=== PATIENT | male | born 1985 | race Caucasian/White ===

== ENCOUNTER 2019-03-16 12:26 | Emergency (ER) | payer SELFPAY ==
[2019-03-16] MEDS ORDERED: ONDANSETRON 4 MG (ODT) TAB ONE (13:09)
[2019-03-16 13:39] LABS: Absolute Lymphocytes (CBC) 1.1 K/uL (0.7-4.9); Absolute Monocytes 1.4 K/uL (0.1-1.3); Absolute Neutrophil 25.2 K/uL (1.8-8.0); Basophils % 0.2 % (0-1.3); Hematocrit 55.5 % (39.6-49.0); Lymphocytes % 3.8 % (15.3-44.8); MPV 8.8 fL (7.6-11.3); RBC Red Blood Cell Count 5.97 M/uL (4.33-5.43)
[2019-03-16] MEDS ORDERED: DICYCLOMINE HCL 10 MG CAP ONE (13:46)
[2019-03-16] MEDS ORDERED: ONDANSETRON 4 MG/2 ML VIAL ONE (13:46)
[2019-03-16] MEDS ORDERED: NA CHLORIDE 0.9% 1,000 ML ONE ×2 (13:46→14:35)
[2019-03-16 13:55] LABS: Albumin 5.6 g/dL (3.4-5.0); Bilirubin Direct 0.2 mg/dL (0-0.2); Bilirubin Total 0.9 mg/dL (0.2-1.0); Potassium 3.9 mmol/L (3.5-5.1); Protein, Total 10.3 g/dL (6.4-8.2)
--- NOTE | 2019-03-16 14:28 | RAD REPORT ---
EXAM DESCRIPTION: CT - Abdomen Pelvis W Contrast - 03/16/2019 2:15 pm CLINICAL HISTORY: Abdominal pain, nausea vomiting and diarrhea, prior hernia repair, prior lithotrip sy COMPARISON: None. TECHNIQUE: Biphasic, helical CT imaging of the abdomen and pelvis was performed following 100 ml non -ionic IV contrast. No oral contrast administered. All CT scans are performed using dose optimization technique as appropriate and may include automated exposure control or mA/KV adjustment according to patient size. FINDINGS: No suspicious findings in the lung bases. The liver, spleen, and pancreas show no suspicious findings. Gallbladder and biliary tree are also wi thout suspicious finding. Symmetric renal function is seen with no hydronephrosis or suspicious renal mass. No pyelonephritis o r acute parenchymal process. No bladder abnormalities. No adrenal abnormalities. Fluid is retained within the stomach. No gastric wall thickening or mass. No dilated small bowel loop s. Colon is not dilated. Colon is mostly decompressed. Todd are mildly prominent which is likely fro m the decompression artifact. A minimal amount of mucosal level colitis would still be possible. No a ppendicitis findings. No free air, free fluid or inflammatory stranding. No hernia, mass or bulky lymphadenopathy. No suspicious bony findings. IMPRESSION: Contrast enhanced CT abdomen and pelvis showing no emergent finding. Decompressed colon shows minimal prominence of the todd. No mass identified. This may reflect a mild colitis.
[2019-03-16 14:38] LABS: Blood Morphology Comment NOT SEEN (NOT SEEN); Platelet Estimate INCR
[2019-03-16] MEDS ORDERED: PROMETHAZINE 25 MG/ML VIAL ONE (15:42)
[2019-03-16 15:47] LABS: Hematocrit 44.6 % (39.6-49.0); MPV 8.7 fL (7.6-11.3); RBC Red Blood Cell Count 4.76 M/uL (4.33-5.43)
[2019-03-16 16:09] LABS: Potassium 3.7 mmol/L (3.5-5.1)
--- NOTE | 2019-03-16 16:20 | EDPHYS ---
Physician Documentation [facility] Name: Abhi Carmichael Age: 33 yrs Sex: Male : 1985 Arrival Date: 03/16/2019 Time: 12:27 Bed 4 Private MD: ED Physician Vane Stevenson HPI: 03/16 14:36 This 33 yrs old Male presents to ER via Ambulatory with complaints of jr8 Abdominal Pain, Vomiting. 14:36 The patient presents with abdominal pain that is diffuse. Onset: The symptoms/episode jr8 began/occurred acutely, today. The symptoms do not radiate. Associated signs and symptoms: Pertinent positives: nausea, vomiting, and diarrhea. The symptoms are described as crampy. Modifying factors: The symptoms are alleviated by nothing, the symptoms are aggravated by nothing. Severity of pain: At its worst the pain was moderate in the emergency department the pain is unchanged. The patient has not experienced similar symptoms in the past. The patient has not recently seen a physician. Historical: - Allergies: 12:35 No Known Allergies; aa5 - Home Meds: 12:35 None [Active]; aa5 - PMHx: 12:35 "kidney pain"; aa5 - PSHx: 12:35 Hernia repair; Lithotripsy; aa5 - Immunization history:: Flu vaccine is not up to date. - Social history:: Smoking status: Patient uses tobacco products, smokes one pack cigarettes per day. - Ebola Screening: : No symptoms or risks identified at this time. ROS: 14:36 ENT: Negative for injury, pain, and discharge, Neck: Negative for injury, pain, and jr8 swelling, Cardiovascular: Negative for chest pain, palpitations, and edema, Respiratory: Negative for shortness of breath, cough, wheezing, and pleuritic chest pain, Back: Negative for injury and pain, MS/Extremity: Negative for injury and deformity, Skin: Negative for injury, rash, and discoloration, Neuro: Negative for headache, weakness, numbness, tingling, and seizure. 14:36 Abdomen/GI: Positive for nausea, vomiting, and diarrhea, abdominal cramps. Exam: 14:36 Eyes: Pupils equal round and reactive to light, extra-ocular motions intact. Lids and jr8 lashes normal. Conjunctiva and sclera are non-icteric and not injected. Cornea within normal limits. Periorbital areas with no swelling, redness, or edema. ENT: Nares patent. No nasal discharge, no septal abnormalities noted. Tympanic membranes are normal and external auditory canals are clear. Oropharynx with no redness, swelling, or masses, exudates, or evidence of obstruction, uvula midline. Mucous membranes moist. Neck: Trachea midline, no thyromegaly or masses palpated, and no cervical lymphadenopathy. Supple, full range of motion without nuchal rigidity, or vertebral point tenderness. No Meningismus. Cardiovascular: Regular rate and rhythm with a normal S1 and S2. No gallops, murmurs, or rubs. Normal PMI, no JVD. No pulse deficits. Respiratory: Lungs have equal breath sounds bilaterally, clear to auscultation and percussion. No rales, rhonchi or wheezes noted. No increased work of breathing, no retractions or nasal flaring. Abdomen/GI: Soft, non-tender, with normal bowel sounds. No distension or tympany. No guarding or rebound. No evidence of tenderness throughout. Back: No spinal tenderness. No costovertebral tenderness. Full range of motion. Skin: Warm, dry with normal turgor. Normal color with no rashes, no lesions, and no evidence of cellulitis. MS/ Extremity: Pulses equal, no cyanosis. Neurovascular intact. Full, normal range of motion. Neuro: Awake and alert, GCS 15, oriented to person, place, time, and situation. Cranial nerves II-XII grossly intact. Motor strength 5/5 in all extremities. Sensory grossly intact. Cerebellar exam normal. Normal gait. Vital Signs: 12:35 BP 118 / 87; Pulse 102; Resp 18 S; Temp 97.0(TE); Pulse Ox 97% on R/A; Weight 63.5 kg aa5 (R); Height 5 ft. 9 in. (175.26 cm) (R); Pain 8/10; 15:03 BP 126 / 81; Pulse 56; Resp 16; Pulse Ox 99% ; lt1 15:38 BP 102 / 84; Pulse 91; Resp 20; Pulse Ox 99% on R/A; aj 12:35 Body Mass Index 20.67 (63.50 kg, 175.26 cm) aa5 MDM: 12:52 Patient medically screened. ma2 14:36 Differential diagnosis: bowel obstruction, gastritis, non-specific abd pain, jr8 pancreatitis, colitis, gastroenteritis, diverticulitis. Data reviewed: vital signs, nurses notes, lab test result(s), radiologic studies, CT scan. Data interpreted: Pulse oximetry: on room air is 97 %. Interpretation: normal. Counseling: I had a detailed discussion with the patient and/or guardian regarding: the historical points, exam findings, and any diagnostic results supporting the discharge/admit diagnosis, lab results, radiology results. 16:14 Response to treatment: the patient's symptoms have markedly improved after treatment, jr8 Markedly improved. Able to tolerate fluids but still with nausea. Renal function improved. WBC improved. No pain with palpation. Patient wants to try and go home for now. If worse will come back for admission . 03/16 12:55 Order name: Basic Metabolic Panel; Complete Time: 13:58 [facility] 03/16 12:55 Order name: CBC with Diff; Complete Time: 14:39 [facility] 03/16 12:55 Order name: Creatinine for Radiology; Complete Time: 13:58 [facility] 03/16 12:55 Order name: Hepatic Function; Complete Time: 13:58 03/16 12:55 Order name: Lipase; Complete Time: 13:58 [facility] 03/16 14:38 Order name: CBC w/o diff; Complete Time: 15:59 03/16 13:49 Order name: CT Abd/Pelvis - W/Contrast; Complete Time: 14:35 [facility] 03/16 14:38 Order name: Basic Metabolic Panel; Complete Time: 16:13 [facility] 03/16 14:38 Order name: Manual Differential; Complete Time: 14:39 [facility] 03/16 12:55 Order name: IV Saline Lock; Complete Time: 13:29 03/16 12:55 Order name: Labs collected and sent; Complete Time: 13:29 03/16 14:56 Order name: Diet Clear Liquid; Complete Time: 14:57 aj Administered Medications: 12:57 Drug: Zofran 4 mg Route: PO; aj 15:37 Follow up: Response: Nausea is decreased aj 13:37 Drug: Zofran 4 mg Route: IVP; Site: right antecubital; aj 15:37 Follow up: Response: Nausea is decreased aj 13:38 Drug: NS 0.9% 1000 ml Route: IV; Rate: 1000 ml; Site: right antecubital; aj 15:37 Follow up: Response: No adverse reaction; IV Status: Completed infusion; IV Intake: aj 1000ml 13:38 Drug: Bentyl 20 mg Route: PO; aj 15:37 Follow up: Response: Nausea is decreased aj 14:23 Drug: NS 0.9% 1000 ml Route: IV; Rate: 1000 ml; Site: right antecubital; aj 15:36 Drug: Phenergan 25 mg Route: IVP; Site: right antecubital; aj 16:25 Follow up: Response: Nausea is decreased aj Disposition: 16:45 Co-signature as Attending Physician, Vane Stevenson MD. ma2 Disposition: 03/16/19 16:19 Discharged to Home. Impression: Gastroenteritis, Dehydration. - Condition is Stable. - Discharge Instructions: Dehydration, Adult, Viral Gastroenteritis, Adult, Rehydration, Adult. - Prescriptions for promethazine 25 mg Oral Tablet - take 1 tablet by ORAL route every 6 hours As needed; 20 tablet. promethazine 25 mg Rectal suppository - insert 1 suppository by RECTAL route every 6 hours; 12 suppository. - Medication Reconciliation Form, Thank You Letter, Antibiotic Education, Prescription Opioid Use form. - Follow up: Private Physician; When: 2 - 3 days; Reason: Recheck today's complaints, Continuance of care, Re-evaluation by your physician. - Problem is new. - Symptoms have improved. Signatures: Dispatcher [employer] Analia Rodriguez RN RN aj Calderon, Audri, RN RN aa5 Travon Kumari PA PA jr8 Vane Stevenson MD MD ma2 Corrections: (The following items were deleted from the chart) 16:30 16:19 03/16/2019 16:19 Discharged to Home. Impression: Gastroenteritis; Dehydration. aj Condition is Stable. Forms are Medication Reconciliation Form, Thank You Letter, Antibiotic Education, Prescription Opioid Use. Follow up: Private Physician; When: 2 - 3 days; Reason: Recheck today's complaints, Continuance of care, Re-evaluation by your physician. Problem is new. Symptoms have improved. jr8
--- NOTE | 2019-03-16 16:20 | ER ---
Nurse's Notes [facility] Name: Abhi Carmichael Age: 33 yrs Sex: Male : 1985 Arrival Date: 03/16/2019 Time: 12:27 Bed 4 Private MD: Diagnosis: Gastroenteritis;Dehydration Presentation: 03/16 12:34 Presenting complaint: Patient states: generalized abd pain with aa5 nausea/vomiting/diarrhea. Transition of care: patient was not received from another setting of care. Onset of symptoms was March 15, 2019. Risk Assessment: Do you want to hurt yourself or someone else? Patient reports no desire to harm self or others. Care prior to arrival: None. 12:34 Method Of Arrival: Ambulatory aa5 12:34 Acuity: LUIGI 3 aa5 16:29 Initial Sepsis Screen: Does the patient meet any 2 criteria? No. Patient's initial aj sepsis screen is negative. Does the patient have a suspected source of infection? No. Patient's initial sepsis screen is negative. Historical: - Allergies: 12:35 No Known Allergies; aa5 - Home Meds: 12:35 None [Active]; aa5 - PMHx: 12:35 "kidney pain"; aa5 - PSHx: 12:35 Hernia repair; Lithotripsy; aa5 - Immunization history:: Flu vaccine is not up to date. - Social history:: Smoking status: Patient uses tobacco products, smokes one pack cigarettes per day. - Ebola Screening: : No symptoms or risks identified at this time. Screenin:57 Abuse screen: Denies threats or abuse. Denies injuries from another. Nutritional aj screening: No deficits noted. Tuberculosis screening: No symptoms or risk factors identified. Fall Risk None identified. Assessment: 12:57 General: Appears in no apparent distress. uncomfortable, Behavior is calm, cooperative, aj appropriate for age. Pain: Denies pain. Neuro: Level of Consciousness is awake, alert, obeys commands, Oriented to person, place, time, situation, Appropriate for age. Respiratory: Airway is patent Respiratory effort is even, unlabored, Respiratory pattern is regular, symmetrical. GI: Bowel sounds present X 4 quads. Abd is soft and non tender Reports cramping, diarrhea, nausea, vomiting. Derm: Skin is intact, is healthy with good turgor, Skin is pink, warm \\T\\ dry. normal. 15:38 Reassessment: Patient appears in no apparent distress at this time. Patient and/or aj family updated on plan of care and expected duration. Pain level reassessed. Patient is alert, oriented x 3, equal unlabored respirations, skin warm/dry/pink. Patient finished clear liquid tray and 2 cups of water, 1 cup of sprite Patient states feeling better. Patient states symptoms have improved. Vital Signs: 12:35 BP 118 / 87; Pulse 102; Resp 18 S; Temp 97.0(TE); Pulse Ox 97% on R/A; Weight 63.5 kg aa5 (R); Height 5 ft. 9 in. (175.26 cm) (R); Pain 8/10; 15:03 BP 126 / 81; Pulse 56; Resp 16; Pulse Ox 99% ; lt1 15:38 BP 102 / 84; Pulse 91; Resp 20; Pulse Ox 99% on R/A; aj 12:35 Body Mass Index 20.67 (63.50 kg, 175.26 cm) aa5 ED Course: 12:27 Patient arrived in ED. mr 12:34 Arm band placed on. aa5 12:35 Triage completed. aa5 12:41 Analia Duque, RN is Primary Nurse. aj 12:52 Vane Stevenson MD is Attending Physician. ma2 12:55 Travon Kumari PA is PHCP. jr8 12:57 Patient has correct armband on for positive identification. aj 13:39 Inserted saline lock: 20 gauge in right antecubital area, using aseptic technique. aj Blood collected. 14:15 CT Abd/Pelvis - W/Contrast In Process Unspecified. EDMS 16:29 No provider procedures requiring assistance completed. IV discontinued, intact, aj bleeding controlled, No redness/swelling at site. Pressure dressing applied. Administered Medications: 12:57 Drug: Zofran 4 mg Route: PO; aj 15:37 Follow up: Response: Nausea is decreased aj 13:37 Drug: Zofran 4 mg Route: IVP; Site: right antecubital; aj 15:37 Follow up: Response: Nausea is decreased aj 13:38 Drug: NS 0.9% 1000 ml Route: IV; Rate: 1000 ml; Site: right antecubital; aj 15:37 Follow up: Response: No adverse reaction; IV Status: Completed infusion; IV Intake: aj 1000ml 13:38 Drug: Bentyl 20 mg Route: PO; aj 15:37 Follow up: Response: Nausea is decreased aj 14:23 Drug: NS 0.9% 1000 ml Route: IV; Rate: 1000 ml; Site: right antecubital; aj 15:36 Drug: Phenergan 25 mg Route: IVP; Site: right antecubital; aj 16:25 Follow up: Response: Nausea is decreased aj Intake: 15:37 IV: 1000ml; Total: 1000ml. aj Outcome: 16:19 Discharge ordered by MD. griffin 16:29 Discharged to home ambulatory. aj 16:29 Condition: good 16:29 Discharge instructions given to patient, Instructed on discharge instructions, follow up and referral plans. medication usage, Demonstrated understanding of instructions, follow-up care, medications, Prescriptions given X 2. 16:30 Patient left the ED. aj Signatures: Dispatcher [employer] EDAnalia Wang RN RN aj Rivera, Mary mr Calderon, Audri, RN RN aa5 Travon Kumari PA PA jr8 Alzahri, Mohammad, MD MD ma2 Priti Hoover [facility]
[2019-03-16 16:50] VITALS: TEMP 97
[2019-03-16 16:51] VITALS: O2SAT 99
[2019-03-16 16:53] VITALS: BP 102/84
== END 2019-03-16 16:30 | disposition home or self-care (01) ==
LOC: ER 12:26
DX: E86.0 Dehydration (principal); K52.9 Noninfective gastroenteritis and colitis, unspecified; F17.210 Nicotine dependence, cigarettes, uncomplicated
CPT/HCPCS: 36415; 74177; 80048; 80076; 83690; 85025; 85027; J2405; J2550; J7030; Q9967